=== PATIENT | male | born 1990 | race Caucasian/White ===

== ENCOUNTER 2020-12-29 17:23 | Emergency (ER) | payer BC ==
[~2020-12-29] VITALS: Ht 177.8 cm; Wt 79.5 kg
[~2020-12-29 17:23] MED LIST: FLOMAX 0.40.4 MG/CAP PO; LEVAQUIN 5500 MG/TA1 PO; NO HOME MEDICATIONS; NORCO 325 MG-51 TAB PO; PERCOCET 325 MG1 TA3 PO; ZOFRAN 4MG T4 MG/TAB PO
[2020-12-29 17:45] VITALS: TEMP 97.4
[2020-12-29] MEDS ORDERED: ADDERALL30 MG PO (17:58)
[2020-12-29 18:44] VITALS: BP 145/90; PULSE 92
== END 2020-12-29 18:44 | disposition home or self-care (01) ==
LOC: COL.ER 17:23
DX: S62.336A Displaced fracture of neck of fifth metacarpal bone, right hand, initial encounter for closed fracture (principal); F90.9 Attention-deficit hyperactivity disorder, unspecified type; F17.210 Nicotine dependence, cigarettes, uncomplicated; Z79.899 Other long term (current) drug therapy